=== PATIENT | male | born 1990 | race Caucasian/White ===

== ENCOUNTER 2016-04-14 00:48 | Emergency (ER) | payer OTHER ==
[2016-04-14 01:09] VITALS: BP 121/79; PULSE 88; TEMP 98.7; BMI 26.6
[2016-04-14] MEDS ORDERED: IBUPROFEN 600 MG TABLET (FP) PO ONE ×2 (01:18→01:28)
--- NOTE | 2016-04-14 01:19 | PDOC ---
History of Present Illness - General Chief Complaint: Laceration Stated Complaint: INJURY Time Seen by Provider: 04/14/16 01:10 History Source: Patient Exam Limitations: No Limitations - History of Present Illness Initial Comments: 04/14/16 01:18 CHIEF COMPLAINT: Hand laceration HISTORY OF PRESENT ILLNESS: This is an otherwise healthy 25 year old male who presents for evaluation of lacerations to his right second and third digit. The patient states that he cut himself on glass just prior to arrival, but will not say more. He reports that he has received a tetanus vaccine within the past 5 yrs. Vital signs on arrival are unremarkable. REVIEW OF SYSTEMS: GENERAL/CONSTITUTIONAL: No fever or chills. No weakness. No weight change. MUSCULOSKELETAL: No joint or muscle swelling or pain. No neck or back pain. SKIN: See HPI. NEUROLOGIC: No numbness or loss of sensation. HEMATOLOGIC/LYMPHATIC: No anemia, easy bleeding, or history of blood clots. ALLERGIC/IMMUNOLOGIC: No hives or skin allergy. No latex allergy. PHYSICAL EXAM: GENERAL: The patient is awake, alert, and fully oriented, in no acute distress. EXTREMITIES: Able to flex at DIP/PIP of right second and third fingers, able to extend completely. NEUROLOGICAL: Two-point discrimination intact. PSYCH: Normal mood, normal affect. SKIN: Lacerations to right 3rd finger below PIP and at DIP, at 2nd finger below DIP. Past History - Past Medical History Allergies/Adverse Reactions: Allergies Allergy/AdvReac Type Severity Reaction Status Date / Time No Known Allergies Allergy Verified 04/14/16 01:08 Home Medications: Ambulatory Orders NK [No Known Home Medication] 04/14/16 Other medical history: Denies - Immunization History Immunization Up to Date: Yes - Psycho/Social/Smoking Cessation Hx Anxiety: No Suicidal Ideation: No Smoking Status: No Smoking History: Never smoked Have you smoked in the past 12 months: No Number of Cigarettes Smoked Daily: 0 Information on smoking cessation initiated: No Hx Alcohol Use: Yes (Occasional) Drug/Substance Use Hx: Yes (Marijuana) Substance Use Type: Alcohol, Marijuana *Physical Exam - Vital Signs Last Vital Signs Temp Pulse Resp BP Pulse Ox 98.7 F 88 19 121/79 98 04/14/16 01:02 04/14/16 01:02 04/14/16 01:02 04/14/16 01:02 04/14/16 01:02 Procedures - Laceration/Wound Repair Right Dorsal 3rd digit Finger Wound Length: 2.6 to 5.0 cm Wound Explored: clean Wound's Depth, Shape: into muscle, linear Irrigated w/ Saline: Yes Betadine Prep: Yes Anesthesia: 2% Lidocaine Amount of Anesthetic (ccs): 3 (digital block) Wound Repaired With: Sutures Suture Size/Type: 4:0 Number of Sutures: 8 Sterile Dressing Applied: Yes Both Dorsal 3rd digit Finger Wound Length: to 2.5 cm Wound's Depth, Shape: superficial Irrigated w/ Saline: Yes Wound Repaired With: Dermabond Right 2nd digit Finger Wound Length: to 2.5 cm Wound's Depth, Shape: irregular, flap, stellate, contused tissue Irrigated w/ Saline: Yes Betadine Prep: Yes Anesthesia: 2% Lidocaine Amount of Anesthetic (ccs): 2 (digital block) Wound Repaired With: Sutures Suture Size/Type: 4:0 Number of Sutures: 2 (contused- unable to hold suture material well) Sterile Dressing Applied: Yes ED Treatment Course - RADIOLOGY Radiology Studies Ordered: Category Date Time Status HAND- RIGHT [RAD] Stat Radiology 04/14/16 01:18 Ordered Medical Decision Making - Medical Decision Making 04/14/16 03:10 A/P: 25 year old male with hand lacerations. 1. Ibuprofen for pain 2. Tetanus is up-to-date 3. Wound irrigation and laceration repair 4. Wound care and followup instructions reviewed *DC/Admit/Observation/Transfer Diagnosis at time of Disposition: Laceration of hand Qualifiers: Encounter type: initial encounter Laterality: right Qualified Code(s): S61.411A - Laceration without foreign body of right hand, initial encounter - Discharge Dispostion Condition at time of disposition: Fair Admit: No - Referrals Referrals: Richard Garcia MD [Primary Care Provider] - - Patient Instructions Printed Discharge Instructions: DI for Laceration Repair Additional Instructions: -Keep the area clean, dry, and covered for 48 hrs -After that, you can wash gently with soap and water, pat dry, and apply bacitracin ointment once daily -Return here on 04/21 to have the stitches removed -Return sooner if you develop redness, swelling, or pus around the wound or if you have any other concerning symptoms
[2016-04-14] MEDS ORDERED: LIDOCAINE HCL 2% (20ML MULTI-DOSE VIAL) NR ONE (02:19)
== END 2016-04-14 03:16 | disposition home or self-care (01) ==
LOC: JER 00:48 → SUPCPDRO 00:48 → JER 03:16
PROC: 0KQC3ZZ Repair Right Hand Muscle, Percutaneous Approach (ICD-10-PCS; principal; 2016-04-14)
PROC: 0HQFXZZ Repair Right Hand Skin, External Approach (ICD-10-PCS; 2016-04-14)
DX: S61.218A Laceration without foreign body of other finger without damage to nail, initial encounter (principal); W25.XXXA Contact with sharp glass, initial encounter; Y93.89 Activity, other specified; Y92.89 Other specified places as the place of occurrence of the external cause
CPT/HCPCS: 12001-25; 13132; 73130-TC-RT; 99283-25

== ENCOUNTER 2017-06-22 17:32 | Emergency (ER) | payer OTHER ==
[2017-06-22 17:36] VITALS: BP 133/104; PULSE 117; TEMP 97; BMI 27.3
[2017-06-22] MEDS ORDERED: IBUPROFEN 600 MG TABLET (FP) PO ONE ×2 (18:45→18:47)
--- NOTE | 2017-06-22 18:48 | PDOC ---
History of Present Illness - General Chief Complaint: Pain Stated Complaint: SWOLLEN RT ANKLE Time Seen by Provider: 06/22/17 18:04 History Source: Patient, Parent(s) Exam Limitations: No Limitations - History of Present Illness Initial Comments: 06/22/17 18:48 Patient was jumping over a fence yesterday when his foot got stuck causing him to fall onto his hands and knees and twisting his right ankle. Since that time has had swelling and tenderness to the lateral aspect and is difficulty ambulating. Occurred: reports: yesterday Severity: reports: mild, moderate Pain Location: reports: lower extremity (right ankle/ foot) Modifying Factors: improves with: cold therapy Associated Symptoms (Fall): denies symptoms Past History - Travel Traveled outside of the country in the last 30 days: No Close contact w/someone who was outside of country & ill: No - Past Medical History Allergies/Adverse Reactions: Allergies Allergy/AdvReac Type Severity Reaction Status Date / Time No Known Allergies Allergy Verified 06/22/17 17:35 Home Medications: Ambulatory Orders Ibuprofen 600 mg PO Q6H PRN #30 tablet 06/22/17 COPD: No - Immunization History Immunization Up to Date: Yes - Suicide/Smoking/Psychosocial Hx Smoking Status: No Smoking History: Never smoked Have you smoked in the past 12 months: No Number of Cigarettes Smoked Daily: 0 Hx Alcohol Use: Yes (occasion) Drug/Substance Use Hx: Yes (Marijuana) Substance Use Type: Alcohol, Marijuana Review of Systems - Review of Systems Able to Perform ROS?: Yes Is the patient limited Sudanese proficient: Yes Constitutional: Yes: See HPI. No: Symptoms Reported, Malaise HEENTM: Yes: See HPI. No: Symptoms Reported Musculoskeletal: Yes: Symptoms Reported, See HPI, Joint Pain, Joint Swelling Integumentary: Yes: Symptoms Reported, See HPI, Bruising All Other Systems: Reviewed and Negative (right ankle) *Physical Exam - Vital Signs Last Vital Signs Temp Pulse Resp BP Pulse Ox 97 F L 117 H 20 133/104 99 06/22/17 17:33 06/22/17 17:33 06/22/17 17:33 06/22/17 17:33 06/22/17 17:33 - Physical Exam General Appearance: Yes: Nourished, Appropriately Dressed, Apparent Distress, Mild Distress HEENT: positive: JULY, Normal ENT Inspection, TMs Normal, Pharynx Normal Neck: negative: Tender Musculoskeletal: positive: Normal Inspection. negative: CVA Tenderness, Muscle Spasm, Vertebral Tenderness Extremity: positive: Normal Capillary Refill, Normal Inspection Integumentary: positive: Normal Color, Ecchymosis, Bruising (2 lateral aspect of right foot, has no point tenderness to medial or lateral malleolus, no navicular or metatarsal pain or crepitus. Range of motion at toes is limited secondary to tenderness to lateral midfoot.) Neurologic: positive: bilingual manager II-XII NML intact, Fully Oriented, Alert, Normal Mood/ Affect, Normal Response, Motor Strength 07/06 ED Treatment Course - RADIOLOGY Radiology Studies Ordered: Category Date Time Status ANKLE & FOOT-RIGHT* [RAD] Stat Radiology 06/22/17 18:05 Taken Progress Note - Progress Note Progress Note: X-ray negative for fractures or dislocations, is probable ligamentous injury. Reji, Aircast and crutches provided *DC/Admit/Observation/Transfer Diagnosis at time of Disposition: High ankle sprain Qualifiers: Encounter type: initial encounter Laterality: right Qualified Code(s): S93.431A - Sprain of tibiofibular ligament of right ankle, initial encounter - Discharge Dispostion Disposition: HOME Condition at time of disposition: Stable Admit: No - Referrals Referrals: Richard Garcia MD [Primary Care Provider] - Jack Topete MD [Staff Physician] - - Patient Instructions Printed Discharge Instructions: DI for Ankle Sprain Additional Instructions: Rest, ice to area on and off for 15 minutes 4-6 times a day Avoid heavy lifting or exercise until pain and swelling is resolved or until further directed Keep area highly elevated to reduce swelling Use splints/Reji wrap as directed Followup with orthopedist in one to 2 days if not improving, if significantly improved may wait one week for followup with orthopedist May use ibuprofen 2-200 mg tablets every 6 hours as needed for pain - Post Discharge Activity Forms/Work/School Notes: Back to Work, Back to School
== END 2017-06-22 18:51 | disposition home or self-care (01) ==
LOC: JERFT 17:32
DX: S93.431A Sprain of tibiofibular ligament of right ankle, initial encounter (principal); W17.89XA Other fall from one level to another, initial encounter; Y93.39 Activity, other involving climbing, rappelling and jumping off; Y92.89 Other specified places as the place of occurrence of the external cause; Y99.8 Other external cause status
CPT/HCPCS: 73610-TC-RT-FY; 73630-TC-RT-FY; 99281-25